=== PATIENT | male | born 1980 | race Caucasian/White ===

== ENCOUNTER 2017-10-24 14:12 | Emergency (ER) | payer MEDICAID ==
[~2017-10-24] VITALS: Ht 180.3 cm; Wt 112.0 kg
[~2017-10-24 14:12] MED LIST: PANT-47 PO
[2017-10-24] MEDS ORDERED: DOXY100C2 PO (14:44)
[2017-10-24 14:57] VITALS: BP 133/97
[2017-10-24] MEDS ORDERED: HYDROcodone/acetaminophen 10/325mg tab PO ONE (15:05)
== END 2017-10-24 14:58 | disposition home or self-care (01) ==
LOC: ER 14:12
DX: L03.031 Cellulitis of right toe (principal); E78.00 Pure hypercholesterolemia, unspecified; I10 Essential (primary) hypertension; G89.29 Other chronic pain; Z79.899 Other long term (current) drug therapy
CPT/HCPCS: 99283

== ENCOUNTER 2017-10-29 11:10 | Emergency (ER) | payer MEDICAID ==
[~2017-10-29] VITALS: Ht 610.5 cm; Wt 110.0 kg
[~2017-10-29 11:10] MED LIST changes: +DOXY100C2 PO
[2017-10-29 11:17] VITALS: BP 128/78
[2017-10-29] MEDS ORDERED: ketorolac trometh inj. 60 MG/2 ML VIAL IM ONE (12:35)
[2017-10-29] MEDS ORDERED: acetaminophen 325mg tablet PO ONE (12:35)
[2017-10-29] MEDS ORDERED: MELO-100 PO (12:35)
== END 2017-10-29 12:51 | disposition home or self-care (01) ==
LOC: ER 11:10
DX: M25.50 Pain in unspecified joint (principal); M79.674 Pain in right toe(s); E78.00 Pure hypercholesterolemia, unspecified; I10 Essential (primary) hypertension; G89.29 Other chronic pain; Z60.2 Problems related to living alone; Z79.899 Other long term (current) drug therapy
CPT/HCPCS: 93005; 96372; 99283; J1885